=== PATIENT | female | born 1990 | race Caucasian/White ===

== ENCOUNTER 2020-03-20 08:47 | Emergency (ER) | payer BC, SELFPAY ==
[2020-03-20 08:50] VITALS: BP 146/96; PULSE 83; RESP 20; TEMP 36.6; O2SAT 100
--- NOTE | 2020-03-20 09:11 | ED.GENADULT ---
HPI - General Adult General Chief complaint: Dental/Oral Stated complaint: tooth ache Time Seen by Provider: 03/20/20 08:59 Source: patient History of Present Illness HPI narrative: Patient is a 29 y/o female complaining of left upper dental pain starting 2 day ago. She states that pain radiates to left face. She rates her pain as 8/10. She took Tylenol, Ibuprofen which help some. She has no fever. Related Data Allergies Allergy/AdvReac Type Severity Reaction Status Date / Time No Known Allergies Allergy Verified 03/20/20 08:52 Review of Systems Constitutional: Constitutional: Denies chills, Denies fever(s), Denies headache(s) and Denies weakness Eyes: Eyes: Denies blurry vision ENT: Reports dental pain, Reports facial pain, Denies headache(s) and Denies neck pain Cardiovascular: Cardiovascular: Denies chest pain and Denies dyspnea Respiratory: Respiratory: Denies cough and Denies dyspnea Gastrointestinal: Gastrointestinal: Denies abdominal pain, Denies diarrhea, Denies nausea and Denies vomiting Genitourinary: Genitourinary: Denies hematuria and Denies dysuria Musculoskeletal: Musculoskeletal: Denies back pain and Denies neck pain Neurologic: Denies headache(s) and Denies weakness [facility] Social History Social History Gender identity (if verbalized by the patient): Female Exam Const: General: no acute distress and well developed Orientation/consciousness: oriented to person, oriented to place, oriented to time and patient oriented x3 HENMT: Head: normocephalic and other (mild left facial swelling) Ears: external ears normal General nose exam: Normal external nose present Teeth and gingiva: poor dentition and other (left upper molar tenderness) Eyes: General: appearance normal, both eyes and all related structures Conjunctivae: conjunctivae normal Neck: Neck: normal visual inspection and full ROM Chest: Chest palpation & inspection: normal inspection of the chest and no tenderness Resp: Effort & Inspection: normal respiratory effort Auscultation: clear to auscultation bilaterally Cardio: Rate: regular rate Rhythm: regular rhythm GI: GI Palp: No abdominal tenderness and Yes Soft to palpation Skin: General skin exam: normal color and turgor normal Neuro: General: oriented to person, oriented to place, oriented to time and patient oriented x3 Cognition (Neuro): normal cognition Extrem: General: normal to inspection, full ROM and no pedal edema Psych: Appearance: grossly normal Mental Status: mental status grossly normal Affect: normal affect Course Vital Signs Vital signs: Vital Signs Temperature 36.6 C 03/20/20 08:50 Pulse Rate 83 03/20/20 08:50 Respiratory Rate 20 03/20/20 08:50 Blood Pressure 146/96 H 03/20/20 08:50 Pulse Oximetry 100 03/20/20 08:50 Temperature 36.6 C 03/20/20 08:50 Pulse Rate 83 03/20/20 08:50 Respiratory Rate 20 03/20/20 08:50 Blood Pressure 146/96 H 03/20/20 08:50 Pulse Oximetry 100 03/20/20 08:50 Medical Decision Making Vital Signs Vital Signs: Vital Signs Temperature 36.6 C 03/20/20 08:50 Pulse Rate 83 03/20/20 08:50 Respiratory Rate 20 03/20/20 08:50 Blood Pressure 146/96 H 03/20/20 08:50 Pulse Oximetry 100 03/20/20 08:50 Temperature 36.6 C 03/20/20 08:50 Pulse Rate 83 03/20/20 08:50 Respiratory Rate 20 03/20/20 08:50 Blood Pressure 146/96 H 03/20/20 08:50 Pulse Oximetry 100 03/20/20 08:50 Discharge Plan Discharge Clinical Impression: Toothache Patient Disposition: Home, Self-Care Condition: Stable Instructions: Antibiotic Form, Toothache (ED) Prescriptions: New penicillin V potassium 500 mg tablet 500 mg PO TID Qty: 21 RF: 0 Follow-up/Referrals: PHYSICIAN,[facility] [Primary Care Provider] -
[2020-03-20] MEDS: PENICILLIN V POTASSIUM 250 MG TABLET 500 MG PO (09:30)
== END 2020-03-20 09:39 | disposition home or self-care (01) ==
LOC: ANHED 09:30
PROVIDERS: Emergency Provider Emergency Medicine
DX: K08.89 Other specified disorders of teeth and supporting structures (principal)
CPT/HCPCS: 99283; A9270